=== PATIENT | male | born 1975 | race Caucasian/White ===

== ENCOUNTER 2017-10-19 12:10 | Emergency (ER) | payer OTHER ==
[~2017-10-19] VITALS: Ht 182.9 cm; Wt 63.7 kg
[~2017-10-19 12:10] MED LIST: NAPROSYN500 MG PO; PERCOCET 5/31 TABLET PO
[2017-10-19] MEDS ORDERED: SUBOXONE 4 MG-1 EACH SL (13:08)
[2017-10-19] MEDS ORDERED: MOTRIN800 MG PO (15:03)
[2017-10-19] MEDS ORDERED: ZOFRAN ODT4 MG PO (15:03)
[2017-10-19 15:15] VITALS: BP 126/75
== END 2017-10-19 15:18 | disposition home or self-care (01) ==
LOC: EME 12:10
PROC: 3E0234Z Introduction of Serum, Toxoid and Vaccine into Muscle, Percutaneous Approach (ICD-10-PCS; principal; 2017-10-19)
DX: S06.0X0A Concussion without loss of consciousness, initial encounter (principal); R11.2 Nausea with vomiting, unspecified; S00.81XA Abrasion of other part of head, initial encounter; S01.312A Laceration without foreign body of left ear, initial encounter; Y08.02XA Assault by strike by baseball bat, initial encounter; Z23 Encounter for immunization; F17.200 Nicotine dependence, unspecified, uncomplicated
CPT/HCPCS: 70450; 99281; 99284